=== PATIENT | male | born 1955 | race Caucasian/White ===

== ENCOUNTER 2023-05-29 10:29 | Outpatient (CLI) | payer OTHER, SELFPAY | END 2023-05-29 10:30 | disposition home or self-care (01) | LOC: NFLDREF 06-01 11:11 | PROVIDERS: PCP Family Medicine; Visit Provider Family Medicine | DX: Z00.00 Encounter for general adult medical examination without abnormal findings (principal); D56.1 Beta thalassemia; E55.9 Vitamin D deficiency, unspecified; E78.00 Pure hypercholesterolemia, unspecified; E78.5 Hyperlipidemia, unspecified; M10.9 Gout, unspecified; R79.89 Other specified abnormal findings of blood chemistry; Z12.5 Encounter for screening for malignant neoplasm of prostate | CPT/HCPCS: 80053; 80061; 84270; 84402; 84403; G0103 ==

== ENCOUNTER 2023-09-22 13:15 | Outpatient (CLI) | payer OTHER, SELFPAY ==
--- OUTSIDE RECORDS SUMMARY | 2023-09-24 08:33 | XMS_ITS | Data Portability ---
Author Organization [facility], [facility] Address [address] [place] [address] Care Team Providers Care Chain Dyer Name Role Phone AIDA RUBIO Primary Care Provider Assessment Encounter Date Assessment Date Assessment LastModified by Organization Details LastModified Time 07/29/2023 07/29/2023 67 year old male with a history of hypgonadism and an elevated prostate specific antigen. Not available 07/29/2023 14:22:27 Plan of Treatment Reminders Order Date Submit Date Provider Last Modified By Organization Details Last Modified Time Details Appointments None recorded. Lab urinalysis, dipstick 2023 024 [facility], [address], [address], [place], [address], 14:29:16 [facility], [facility], [address], [address], [place], [address], 14:10:49 PSA, total, serum or plasma 2023 024 [facility], [address], [address], [place], [address], 17:58:02 Referral None recorded. Procedures None recorded. Surgeries None recorded. Imaging None recorded. Medication Orders None recorded. Patient TargetsNo targets recorded. Patient Instructions Encounter Date Encounter Id Patient Instructions Last Modified By Organization Details Last Modified Time 07/29/2023 [id number] Elevated prostat e specific antigen: We discussed the significance of an elevated serum prostate specific antigen and its utility in screening for prostate cancer. We discussed that while prostate specific antigen levels may be elevated in some men due to benign causes such as trauma, recent sexual intercourse, urinary tract infections, or recent instrumentation, it may also be indicative of underlying prostate cancer. We did discuss the 20-40% chance of false elevation and that a repeat prostate specific antigen will be obtained if not already done. We discussed that a serum prostate specific antigen test alone is not sufficient to determine if prostate cancer is present and further testing is warranted. We then discussed the available options for further evaluations. One option would be to proceed with transrectal ultrasound with prostate biopsy. This allows for sampling of the prostate in areas where cancer is likely to be found. This will allow for detection of underlying prostate cancer if it is present. We discussed the limitations of this including under sampling which may lead to under diagnosis. We also discussed the risks most notably bleeding to a degree enough to require intervention (1-2.5%) and infection which may result in hospitalization (1-3%). We also discussed expected after effects of biopsy including temporary hematuria, blood per rectum, and hematospermia which are considered normal after this procedure. Up front biopsy may be most suitable for men with high risk for clinically significant prostate cancer where the likelihood of disease is high. A second option we discussed would be to proceed first with an MRI of the prostate. This would allow for detection of underlying lesions of the prostate which are suspicious for cancer. This information could then be utilized for ultrasound-MRI fusion biopsies which may result in improved detection of underlying prostate cancer and also facilitate bed bug exterminator surveillance for men in which low risk prostate cancers are identified. We then discussed the role of adjunctive testing in the form (4k score, iso-PSA, or ExoDx) to help better inform risk profile. While this does not tell a man whether he has prostate cancer this may be helpful in making a decision about whether to proceed with a prostate biopsy. We also discussed the limitations of these studies in men with a prostate specific antigen less than 4 ng/mL. Given that this is his first elevation, we will first repeat his prostate specific antigen. If this is persistently elevated we will proceed with an MRI and biopsy. Not available 07/29/2023 14:23:14 Reason for Referral None Reported. Results Created Date Observation Date Name Description Value Unit Range Abnormal Flag LastModifiedBy Organization Detail LastModifiedTime 07/29/19 24 07/29/2023 UA WITHO UT MICRO - CS URISC AN blood - uriscan NEGATI VE negati ve Not Available [facility] [address], [place], [address], 07/29/2023 14:29:16 07/29/19 24 07/29/2023 UA WITHO UT MICRO - CS URISC AN bilirubin - uriscan NEGATI VE mg/dL negati ve Not Available [facility] [address], [place], [address], 07/29/2023 14:29:16 07/29/19 24 07/29/2023 UA WITHO UT MICRO - CS URISC AN urobilinogen - uriscan NORMAL mg/dL normal Not Available [facility] [address], [place], [address], 07/29/2023 14:29:16 07/29/19 24 07/29/2023 UA WITHO UT MICRO - CS URISC AN ketones - uriscan NEGATI VE mg/dL negati ve Not Available [facility] [address], [place], [address], 07/29/2023 14:29:16 07/29/19 24 07/29/2023 UA WITHO UT MICRO - CS URISC AN protein - uriscan NEGATI VE mg/dL negati ve Not Available [facility] [address] [facility] [address], [place], [address], 07/29/2023 14:29:16 07/29/19 24 07/29/2023 UA WITHO UT MICRO - CS URISC AN nitrites - uriscan NEGATI VE negati ve Not Available [facility] [address], [place], [address], 07/29/2023 14:29:16 07/29/19 24 07/29/2023 UA WITHO UT MICRO - CS URISC AN glucose - uriscan NEGATI VE mg/dL negati ve Not Available [facility] [address] [place] [address], [place], [address], 07/29/2023 14:29:16 07/29/19 24 07/29/2023 UA WITHO UT MICRO - CS URISC AN pH - uriscan 5.00 5.00-9 .00 Not Available [facility] [address] [place] [address], [place], [address], 07/29/2023 14:29:16 07/29/19 24 07/29/2023 UA WITHO UT MICRO - CS URISC AN sp. gravity - uriscan 1.03 1.01-1 .03 Not Available [facility] [address] [place] [address] [address], [place], [address], 07/29/2023 14:29:16 07/29/19 24 07/29/2023 UA WITHO UT MICRO - CS URISC AN leukocytes - uriscan NEGATI VE negati ve Not Available [facility] [address] [place] [address] [address], [place], [address], 07/29/2023 14:29:16 07/29/19 24 07/29/2023 UA WITHO UT MICRO - CS URISC AN color - uriscan LT. YELLOW lt. yellow ;yello w Not Available [facility] [address] [place] [address] [address], [place], [address], 07/29/2023 14:29:16 07/29/19 24 07/29/2023 UA WITHO UT MICRO - CS URISC AN clarity - uriscan CLEAR clear Not Available [facility] [address] [place] [address] [address], [place], [address], 07/29/2023 14:29:16 07/29/19 24 07/29/2023 UA WITHO UT MICRO - CS URISC AN total urine volume (mL) 70 /mL Not Available [facility] [address], [place], [address], 07/29/2023 14:29:16 07/29/19 24 07/29/2023 PSA, TOTAL PSA, total 0.55 NG/mL 0.00-4 .00 Not Available [facility] [address], [place], [address], 07/29/2023 17:58:02 Result Notes None recorded. Problems Name Status Onset Date Resolution Date Notes Provider Name and Address Organization Details Recorded Time Anxiety Active 06/25/19 24 Edgar Meath null, [facility] 06/25/2023 11:29:41 Erectile dysfunction Active 06/25/19 24 Edgar Meath null, [facility] 06/25/2023 11:29:48 Gout Active 06/25/19 24 Edgar Meath null, [facility] 06/25/2023 11:29:55 Hyperlipidemia Active 06/25/19 24 Edgar Meath null, [facility] 06/25/2023 11:30:00 Testicular hypofunction Active 06/25/19 24 Edgar Meath null, [facility] 06/25/2023 11:30:10 Vitamin D deficiency Active 06/25/19 24 Edgar Meath null, [facility] 06/25/2023 11:30:19 Prostate specific antigen above reference range Active 06/25/19 24 Edgar Meath null, [facility] 06/25/2023 11:30:27 Hypogonadism Active 09/01/19 24 Edgar Meath null, [facility] 09/01/2023 11:10:25 Problem Notes None recorded. Procedures Surgical History Date Name Laterality Status Provider Name and Address Organization Details Recorded Time 4 COMPLEX VISIT completed Carmine Chapa MD [address] [place] [address],[address], [address], [facility] 07/29/2023 14:21:41 Past Data Reviewed completed Carmine Chapa MD [address] [place] [address],[facility] [address], [place], [address], [facility] 07/29/2023 14:21:57 8 Colonoscopy completed Edgar Domingo brooks [facility] 06/25/2023 11:31:10 Imaging Results None recorded. Procedure Notes None recorded. Medical Equipment None Reported. Allergies No known drug allergies Medications Name Sig Start Date Stop Date Status Note LastModified by Organization Details LastModified Time simvastat in 80 mg tablet 80mg 1/day active Not Available Not Available No t Available sildenafi l 100 mg tablet TAKE 1 TABLET BY MOUTH ONCE DAILY IF NEEDED FOR ERECTILE DYSFUNCT ION 30 MINUTES TO 4 HOURS BEFORE SEXUAL ACTIVITY . MAX 1 TABLET PER DAY. active Not Available Not Available No t Available omeprazol e 20 mg capsule,d elayed release TAKE 1 CAPSULE BY MOUTH TWICE A DAY BEFORE MEALS 07/28 completed HN: Patient reports no longer taking Not Available Not Available Not Available ergocalci ferol (vitamin D2) 1,250 mcg (50,000 unit) capsule TAKE 1 CAPSULE BY MOUTH ONCE A WEEK active Not Available Not Available No t Available Drisdol 1.25mg of [id number] Once a week 07/28 completed HN: Patient reports no longer taking Not Available Not Available Not Available Vitals Date Recorded Body mass index (BMI) Body height Body weight Provider Name and Address Organization Details Last Updated DateTime 07/29/2023 27.3 kg/m2 187.96 cm 10158.2897 366458 g Not Available Health Note 07/29/2023 13:55:22 Social History Question Answer Notes LastModified by Organizat ion Details LastModified Time Tobacco Smoking Status Never Smoker Not Available Health Note 07/28/2023 15:52:16 What Is Your Level Of Alcohol Consumption? Occasional Information not available 07/29/2023 What Is Your Level Of Caffeine Consumption? Occasional [email or web address] Information not available 07/28/2023 How Much Tobacco Do You Chew? None [email or web address] Information not available 07/28/2023 Do You Or Have You Ever Used E-cigarettes Or Vape? Never Used Electronic Cigarettes [email or web address] Information not available 07/28/2023 What Was The Date Of Your Most Recent Tobacco Screening? 07/29/2023 [email or web address] Information not available 07/28/2023 Have You Ever Been Counseled For Unhealthy Alcohol Use? No Information not available 07/29/2023 What Is Your Relationship Status? [email or web address] Information not available 07/28/2023 Are You Sexually Active? Yes [email or web address] Information not available 06/30/2023 Do You Or Have You Ever Used Smokeless Tobacco? Never Used Smokeless Tobacco [email or web address] Information not available 07/28/2023 Do You Use Any Illicit Or Recreational Drugs? No [email or web address] Information not available 07/28/2023 Has Tobacco Cessation Counseling Been Provided? No Information not available 07/29/2023 Do You Or Have You Ever Used Any Other Forms Of Tobacco Or Nicotine? No Information not available 07/29/2023 How Many Days In The Past Year Have You Consumed 5 Or More Drinks? 0 [email or web address] Information no t available 07/28/2023 Sex: Male Functional Status None recorded. Mental Status None recorded. Family History Relationship Description Onset Age of this Age Resolved Age Notes Mother Family history of east cancer Medical History Condition Response Sexually Transmitted Infection N Diabetes N Bleeding Disorder N High Blood Pressure N Kidney Stones N Cancer N Lung Disease N Depression N High Cholesterol N GERD/Acid Reflux N Heart Disease N Immunizations Vaccine Type Date Status Provider Name and Address Organization Details Recorded Time SARS-COV-2 (COVID-19) vaccine, UNSPECIFIED 04/07/2021 completed Edgar Meath null, [facility] 07/29/2023 14:06:20 SARS-COV-2 (COVID-19) vaccine, UNSPECIFIED 04/27/2021 completed Edgar Meath null, [facility] 07/29/2023 14:06:20 zoster recombinant 08/28/2017 completed Edgar Meath null, [facility] 07/29/2023 14:06:20 zoster recombinant 11/26/2017 completed Edgar Meath null, [facility] 07/29/2023 14:06:20 COVID-19, mRNA, LNP-S, PF, 100 mcg/0.5mL dose or 50 mcg/0.25mL dose 07/18/2020 completed Edgar Meath null, [facility] 07/29/2023 14:06:20 COVID-19, mRNA, LNP-S, PF, 100 mcg/0.5mL dose or 50 mcg/0.25mL dose 08/15/2020 completed Edgar Chayo guy [facility] 07/29/2023 14:06:20 COVID-19, mRNA, LNP-S, PF, 100 mcg/0.5mL dose or 50 mcg/0.25mL dose 04/08/2021 completed Edgar Meat brooks [facility] 07/29/2023 14:06:20 COVID-19, mRNA, LNP-S, bivalent, PF, 50 mcg/0.5 mL or 25mcg/0.25 mL dose 03/26/2022 completed Edgar Meath brooks [facility] 07/29/2023 14:06:20 Tdap 05/24/2013 completed Edgar Meath brooks [facility] 07/29/2023 14:06:20 Td (adult), 2 Lf tetanus toxoid, preservative free, adsorbed 01/13/2003 completed Edgar Meat brooks [facility] 07/29/2023 14:06:20 Past Encounters Encounter ID Performer Location Encounter Start Date Encounter Closed Date Diagnosis/Indication Diagnosis SNOMED-CT Code [id number] Taylor Pinto [address] [address] 07/29/2023 13:52:21 07/29/2023 14:28:01 Prostate specific antigen above reference range [id number] Male hypogonadism 958718 06 Health Concerns Section Related Observation LastModified by Organization Detai ls LastModified Time None Recorded Concern Status LastModified by Organization Details LastModified Time None Recorded Advance Directives Directive None Recorded Payers Encounter Date Sequence Insurance Name Policy Number Policy Worrell Covered Member ID Worrell Member ID Guarantor Name 07/29/2023 1 [employer] (MEDICARE REPLACEMENT PPO) [id number] Jeyson Keith [id number] Jeyson Keith 07/29/2023 2 MED[place] [employer] [facility] Jeyson Keith [id number] Jeyson Keith Notes Date Note Type Note Provider Name and Address Organization Details Recorded Time 07/29/2023 text/html HPI Notes: This is a 67 year old male who is referred by Dr. Rubio for the evaluation and management of an elevated prostate specific antigen. He was noted to have an elevated prostate specific antigen of 2.37 ng/mL (05/29/2023) His prior prostate specific antigen's have been < 1 ng/mL with his prostate specific antigen last year at 0.5 ng/mL. He has no prior history of prostate specific antigen elevations. There is no family history of prostate cancer. He is typically on testosterone replacement therapy but this is being held pending evaluation of his prostate specific antigen. SARAH Patel - [facility] 07/29/2023 14:25:38
--- OUTSIDE RECORDS SUMMARY | 2023-09-24 08:33 | XMS_ITS | Continuity of Care Document ---
Author Organization [facility] Address [address] [address] Care Team Providers Care Coverstitch Binder Name Role Phone AIDA RUBIO Primary Care Provider [phone] Assessment Encounter Date Assessment Date Assessment LastModified by Organization Details LastModified Time 07/29/2023 07/29/2023 67 year old male with a history of hypgonadism and an elevated prostate specific antigen. Not available 07/29/2023 14:22:27 Plan of Treatment Reminders Order Date Submit Date Provider Last Modified By Organization Details Last Modified Time Details Appointments None recorded. Lab urinalysis, dipstick 2023 [facility], [address], [address], [place], [address], 14:29:16 [facility]inalysis, microscopic [facility], [address], [address], [place], [address], 14:10:49 PSA, total, serum or plasma 2023 024 [facility], [address], [address], [place], [address], 17:58:02 Referral None recorded. Procedures None recorded. Surgeries None recorded. Imaging None recorded. Medication Orders None recorded. Patient TargetsNo targets recorded. Patient Instructions Encounter Date Encounter Id Patient Instructions Last Modified By Organization Details Last Modified Time 07/29/2023 [id number] Elevated prostat e specific antigen: We discussed [...] of underlying prostate cancer and also facilitate terminal superintendent surveillance for men in which low risk [...] 07/29/2023 14:23:14 Reason for Referral None Reported. Problems Name Status Onset Date Resolution Date Notes Provider Name and Address Organization Details Recorded Time Anxiety Active 06/25/19 24 Edgar Meath null, [facility] 06/25/2023 11:29:41 Erectile dysfunction Active 06/25/19 24 Edgar Meath null, [facility] 06/25/2023 11:29:48 Gout Active 06/25/19 24 Edgar Meath null, [facility] 06/25/2023 11:29:55 Hyperlipidemia Active 06/25/19 24 Edgar Meath null, [facility] 06/25/2023 11:30:00 Testicular hypofunction Active 06/25/19 24 Edgar Meath null, [facility] 06/25/2023 11:30:10 Vitamin D deficiency Active 06/25/19 24 Edgar Meath null, [facility] 06/25/2023 11:30:19 Prostate specific antigen above reference range Active 06/25/19 24 Edgar Meath null, [facility] 06/25/2023 11:30:27 Hypogonadism Active 09/01/19 24 Edgar Meath null, [facility] 09/01/2023 11:10:25 Problem Notes None recorded. Procedures Surgical History Date Name Laterality Status Provider Name and Address Organization Details Recorded Time 4 COMPLEX VISIT completed Carmine Chapa MD [address] [place] [address],[address], [address], [facility] 07/29/2023 14:21:41 4 Past Data Reviewed completed Carmine Chapa MD [address] [place] [address],[address], [address], [facility] 07/29/2023 14:21:57 8 Colonoscopy completed [facility], [facility] 06/25/2023 11:31:10 Imaging Results None recorded. Procedure [...] Available No t Available Drisdol 1.25mg of [id number] Once a week 07/28 completed HN: Patient reports no longer taking Not Available Not Available Not Available Vitals Date Recorded Body mass index (BMI) Body height Body weight Provider Name and Address Organization Details Last Updated DateTime 07/29/2023 27.3 kg/m2 187.96 cm 01779.2897 559924 g Not Available Health Note 07/29/2023 13:55:22 [...] available 07/28/2023 Are You Sexually Active? Yes [email or web address] Information not available 06/30/2023 Do You Or Have You Ever Used Smokeless Tobacco? Never Used Smokeless Tobacco [email or web address] Information not available 07/28/2023 Do You Use Any Illicit Or Recreational Drugs? No [email or web address] Information not available 07/28/2023 Has Tobacco Cessation Counseling Been Provided? No Information not available 07/29/2023 Do You Or Have You Ever Used Any Other Forms Of Tobacco Or Nicotine? No Information not available 07/29/2023 How Many Days In The Past Year Have You Consumed 5 Or More Drinks? 0 [email or web address] Information no t available 07/28/2023 Sex: Male Functional Status None recorded. Mental Status None recorded. Family History Relationship Description Onset Age of this Age Resolved Age Notes Mother Family history of br east cancer Medical History Condition Response Diabetes N Sexually Transmitted Infection N Bleeding Disorder N High Blood Pressure N Kidney Stones N Cancer N Lung Disease N Depression N High Cholesterol N GERD/Acid Reflux N Heart Disease N Immunizations Vaccine Type Date Status Provider Name and Address Organization Details Recorded Time SARS-COV-2 (COVID-19) vaccine, UNSPECIFIED 04/07/2021 completed Edgar Meath null, [facility] 07/29/2023 14:06:20 SARS-COV-2 (COVID-19) vaccine, UNSPECIFIED 04/27/2021 completed Edgar Meath null, [facility] 07/29/2023 14:06:20 zoster recombinant 08/28/2017 completed Edgar Meath null, [facility] 07/29/2023 14:06:20 zoster recombinant 11/26/2017 completed Edgar Meath null, [facility] 07/29/2023 14:06:20 COVID-19, mRNA, LNP-S, PF, 100 mcg/0.5mL dose or 50 mcg/0.25mL dose 07/18/2020 completed Edgar Meath null, [facility] 07/29/2023 14:06:20 COVID-19, mRNA, LNP-S, PF, 100 mcg/0.5mL dose or 50 mcg/0.25mL dose 08/15/2020 completed Edgar Meath null, [facility] 07/29/2023 14:06:20 COVID-19, mRNA, LNP-S, PF, 100 mcg/0.5mL dose or 50 mcg/0.25mL dose 04/08/2021 completed Edgar Meath null, [facility] 07/29/2023 14:06:20 COVID-19, mRNA, LNP-S, bivalent, PF, 50 mcg/0.5 mL or 25mcg/0.25 mL dose 03/26/2022 completed Edgar guy [facility] 07/29/2023 14:06:20 Tdap 05/24/2013 completed Edgar guy [facility] 07/29/2023 14:06:20 Td (adult), 2 Lf tetanus toxoid, preservative free, adsorbed 01/13/2003 completed Edgar guy [facility] 07/29/2023 14:06:20 Past Encounters Encounter ID Performer Location Encounter Start Date Encounter Closed Date Diagnosis/Indication Diagnosis SNOMED-CT Code [id number] Taylor Cortés[address],[facility] [address] [place] [address] 07/29/2023 13:52:21 07/29/2023 14:28:01 Prostate specific antigen above reference range [id number] Male hypogonadism 729736 06 Health Concerns Section Related Observation LastModified by Organization Detai ls LastModified Time None Recorded Concern Status LastModified by Organization Details LastModified Time None Recorded Payers Encounter Date Sequence Insurance Name Policy Number Policy Worrell Covered Member ID Worrell Member ID Guarantor Name 07/29/2023 1 [employer] (MEDICARE REPLACEMENT PPO) [id number] Jeyson Keith [id number] Jeyson Keith 07/29/2023 2 [place] [employer] [facility] Jeyson Keith [id number] Jeyson Keith Notes Date Note Type Note Provider Name and Address Organization Details Recorded Time 07/29/2023 text/html HPI Notes: This is a 67 year old male who is referred by Dr. uRbio for the evaluation and management of an [...] pending evaluation of his prostate specific antigen. Taylor guy [facility] 07/29/2023 14:25:38
--- OUTSIDE RECORDS SUMMARY | 2023-09-24 08:33 | XMS_ITS | Clinical Summary ---
Author Organization [facility] Address [address] [place] [address] Care Team Providers Care Gun Striper Name Role Phone Reinaldo Contreras MD Primary Care Provider [phone] Medications Medication Sig Dispensed Refills Start Date End Date Status VITAMIN D, CHOLECALCIFEROL, PO Take 5,000 Units by mouth once a week Active PARoxetine HCl (PAXIL PO) Take 20 mg by mouth daily Active SIMVASTATIN PO Take 80 mg by mouth Active Active Problems Problem Noted Date Diagnosed Date Pain in joint, shoulder region 07/05/2010 Social History Tobacco Use Types Packs/Day Years Used Date Smoking Tobacco: Never Smokeless Tobacco: Never Sex and Gender Information Value Date Recorded Sex Assigned at Not on file Gender Identity Not on file Sexual Orientation Not on file Last Filed Vital Signs Vital Sign Reading Time Taken Comments Blood Pressure 134/82 09/10/2017 3:19 PM CDT Pulse 64 09/10/2017 2:15 PM CDT Temperature - - Respiratory Rate 16 09/10/2017 3:00 PM CDT Oxygen Saturation 96% 09/10/2017 3:19 PM CDT Inhaled Oxygen Concentration - - Weight 99.8 kg (220 lb) 09/10/2017 2:15 PM CDT Height 188 cm (6' 2) 09/10/2017 2:15 PM CDT Body Mass Index 28.25 09/10/2017 2:15 PM CDT Plan of Treatment Not on file Care Teams Gun Striper Relationship Specialty Start Date End Date Reinaldo Contreras MD [facility] [address] [place] [address] PCP - General Family Practice 09/02/17
--- OUTSIDE RECORDS SUMMARY | 2023-09-24 08:33 | XMS_ITS | Clinical Summary ---
Author Organization [facility] Address [place], [place] [address] Care Team Providers Care Orthotic/Prosthetic Practitioner Name Role Phone Reinaldo Contreras MD Primary Care Provider Allergies No known active allergies Medications Medication Sig Dispensed Refills Start Date End Date Status ibuprofen (ADVIL; MOTRIN) 600 mg tabletIndications:S kin cyst Take 1 Tablet (600 mg) by mouth every 6 hours if needed for Pain. Maximum of 3200 mg in 24 hours. 20 Tablet 01/13/2022 Active acetaminophen (TYLENOL) 325 mg tabletIndications:S kin cyst Take 2 Tablets (650 mg) by mouth every 4 hours if needed for Pain. Max acetaminophen dose: 4000mg in 24 hrs. 30 Tablet 01/13/2022 Active PARoxetine (PAXIL) 20 mg tabletIndications:D epression with anxiety Take 1 Tablet (20 mg) by mouth every morning. 90 Tablet 05/02/2022 Active testosterone cypionate (DEPO-TESTOSTERONE) 200 mg/mL injectionIndication s:Erectile dysfunction, unspecified erectile dysfunction type Inject 125 mg intramuscular every 2 weeks. 10 mL 1 08/25/2022 Active simvastatin (ZOCOR) 80 mg tabletIndications:O ther hyperlipidemia Take 1 Tablet (80 mg) by mouth at bedtime. 90 Tablet 3 08/25/2022 Active sildenafil citrate (Viagra) 100 mg tabletIndications:E rectile dysfunction, unspecified erectile dysfunction type Take 1 Tablet (100 mg) by mouth once daily if needed for Erectile Dysfunction. Take 30min to 4 hours before sexual activity. Max 100mg/24hr. 90 Tablet 3 08/25/2022 Active omeprazole (PRILOSEC) 20 mg Delayed-Release capsuleIndications: Chronic GERD Take 1 Capsule (20 mg) by mouth two times daily before meals. 180 Capsule 3 08/25/2022 Active ergocalciferol (VITAMIN D2; DRISDOL) 50,000 unit capsuleIndications: Vitamin D deficiency Take 1 Capsule (50,000 units) by mouth once weekly. 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 12/21/2018 Nuclear senile cataract of both eyes 04/11/2016 Erectile dysfunction 06/09/2014 Anxiety 06/09/2014 vitamin D deficiency 07/21/2011 Pain in joint, shoulder region 06/24/2010 Gout, unspecified 11/09/2009 Routine health maintenance 11/09/2009 Overview: Last cpx-04/04 Last lipid-04/04,LDL-51 Last colonoscopy-09/11, recheck 10 years hyperlipidemia 10/25/2009 testicular hypofunction 10/25/2009 Resolved Problems Problem Noted Date Diagnosed Date Resolved Date Depression with anxiety 11/09/200905/28 Immunizations Name Administration Dates Next Due COVID-19 vaccine (Moderna 100mcg/0.5mL) PF, MDV 08/15/2020,07/18/2020 COVID-19 vaccine (Moderna 50 mcg/0.5mL) 12YO+ BIVALENT PF, MDV 03/26/2022 Td (Age >=7 Years) 01/13/2003 Tdap 05/24/2013 Zoster (Shingrix-RZV, recombinant) 11/26/2017, Family History Medical History Relation Name Comments Cancer Father Hypertension Father Cancer Mother Hypertension Mother Relation Name Status Comments Father Mother Social History Tobacco Use Types Packs/Day Years Used Date Smoking Tobacco: Never Smokeless Tobacco: Never Alcohol Use Standard Drinks/Week Comments Yes 0 (1 standard drink = 0.6 oz pur e alcohol) very rare PHQ-2 Answer Date Recorded PHQ-2 TOTAL SCORE 0 08/25/2022 Social Connections Answer Date Recorded Frequency of Communication with Friends and Fami ly Not on file 2023 Financial Resource Strain Answer Date R ecorded Difficulty of Paying Living Expenses 3 08/25/2022 Difficulty of Paying Living Expenses Not on file 08/25/2022 Food Insecurity Answer Date Recorded Worried About Running Out of Food in the Last Ye ar 1 08/25/2022 Transportation Needs Answer Date Record ed Lack of Transportation (Medical) 1 08/25/2022 Housing Stability Answer Date Recorded Unable to Pay for Housing in the Last Year 1 08/25/2022 Sex and Gender Information Value Date Recorded Sex Assigned at Not on file Gender Identity Not on file Sexual Orientation Not on file Obstetrics History Last Filed Vital Signs Vital Sign Reading Time Taken Comments Blood Pressure 143/75 09/25/2022 1:48 PM CDT Pulse 62 09/25/2022 1:48 PM CDT Temperature 36.4 ??C (97.6 ??F) 01/13/2022 5:59 PM CD T Respiratory Rate 16 01/13/2022 6:02 PM CDT Oxygen Saturation 100% 09/25/2022 1:48 PM CDT Inhaled Oxygen Concentration - - Weight 100.8 kg (222 lb 3.2 oz) 09/25/2022 1:48 PM CDT Height 186.7 cm (6' 1.5) 09/25/2022 1:48 PM CDT Body Mass Index 28.92 09/25/2022 1:48 PM CDT Plan of Treatment Health Maintenance Due Date Last Done Comments Hepatitis C screening for ag e 18-79 1974 Pneumococcal series for age 65+ (1 of 1 - PCV) 2021 COVID-19 vaccine series (2022-24 season) 2022 03/26/2022, 04/08/2021, 08/15/2020, Additional history exists Tetanus booster 05/24/2023 05/24/2013, 01/13/2003 Depression screening for age 12+ 2023 08/25/2022, 09/27/2021, 10/22/2020, Additional history exists Medicare Wellness for age 65+ 2023 08/25/2022 BMI (ht and wt on same day) for age 18+ 09/26/2023 09/25/2022, 08/25/2022, 12/19/2021, Additional history exists Influenza for age 65+ 12/27/2023 Lipids for age 45-75 08/16/2027 08/15/2022, 07/26/2021, 10/19/2020, Additional history exists Colonoscopy through age 75 09/11/202709/10, 04/22/2007 (Completed outside of [facility]) Tdap Completed 05/24/2013 Zoster (shingles) series for age 50+ Completed 11/26/2017, 08/28/2017 Procedures Procedure Name Priority Date/Time Associated Diagnosis Comments LC LIPID PANEL Routine 08/15/2022 10:36 AM CDT Mixed hyperlipidemia SCAN-COLONOSCOPY 09/10/2017 12:0 0 AM CDT from Last 3 Months or Most Recently Relevant to Health Maintenance Results * (ABNORMAL) LC LIPID PANEL (08/15/2022 10:36 AM CDT) [facility] Cholesterol, Total 125 100 - 199 mg/dL 08/19/2022 1:[address] [facility]) Triglycerides 127 0 - 149 mg/dL 08/19/2022 1:[address] ([facility]) HDL Cholesterol 35(L) >39 mg/dL 1:[address] [facility] ([facility]) VLDL Cholesterol [place] 23 5 - 40 mg/dL 08/19/2022 1:09 PM CDT [facility] ([facility]) LDL Chol Calc ([facility]) 67 0 - 99 mg/dL 08/19/2022 1:09 PM T [facility] ([facility]) Blood BLOOD SPECIMEN / Unknown Venipuncture / Unknown 08/15/2022 10:36 AM CDT 08/15/2022 10:36 AM CDT Narrative [facility] ([facility]) - 08/19/2022 1:09 PM CDT Performed at: ??01 - [facility] [address] [place] [address] ??[id number] Dye Reel Operator Helper: Sven Crow MD, Phone: ??[phone] Reinaldo Contreras MD SEND OUTS [facility] ([facility]) [facility] [place], [place] [address] * SCAN-COLONOSCOPY (09/10/2017 12:00 AM CDT) Scanner OTHER from Last 3 Months or Most Recently Relevant to Health Maintenance Advance Directives * Full Code (Latest Code Status on File) Date Activated Date Inactivated Comments 01/13/2022 1:55 PM 01/13/2022 4:32 PM Question Answer Comments Code Status Discussion: Reviewed Preferences Care Teams Orthotic/Prosthetic Practitioner Relationship Specialty Start [place] [address] [place] [address] PCP - General 10/23/09
--- OUTSIDE RECORDS SUMMARY | 2023-09-24 08:33 | XMS_ITS | Continuity of Care Document ---
Author Organization [facility] Address [address] [address] [place] [address] Phone Care Team Providers Care Dinkey Operator Slate Name Role Phone No Information Unavailable Unavailable Advance Directives Directive Yes / No Effective Date File Name No Information Encounters Encounter Description Practice Location Reason(s) For Visit Diagnoses Date Provider Providers Copied on Encounter [facility], [address] [address], [place], [place], [id number], [place] tel:[phone] No Information No Information Family History Family Member Type Diagnosis Age At Onset No Information Payers Payer name Insurance type Covered alliance party ID Authoriza tion(s) No Information Social History Type Description Quantity Date Captured Comments Sex Male Smoking Status No Information Chief Complaint And Reason For Visit No Information Reason For Referral Reason For Referral No Information History Of Present Illness Encounter Date Complaint History Of Prese nt Illness No Information Functional Status Date Functional Assessmen t No Information Instructions Date Instruction Additional Infor mation No Information Assessments Type Assessment Date No Information Patient Care Teams Name Effective Dates (start - stop) Status Members No Information
--- OUTSIDE RECORDS SUMMARY | 2023-09-24 08:33 | XMS_ITS | Referral Summary ---
Author Organization [facility] Address [address] [place] [address] Care Team Providers Care Coater Name Role Phone Reinaldo Contreras MD Primary Care Provider [phone] Medications Medication Sig Dispensed Refills Start Date [...] of Treatment Not on file Care Teams Coater Relationship Specialty Start Date End Date Reinaldo Contreras MD [facility] [address] [place] [address] PCP - General Family Practice 09/02/17
== END 2023-09-22 13:16 | disposition home or self-care (01) ==
LOC: NFLDREF 09-24 08:26
PROVIDERS: PCP Family Medicine; Referring Provider Family Medicine; Visit Provider Family Medicine
DX: R79.89 Other specified abnormal findings of blood chemistry (principal); D56.1 Beta thalassemia; I10 Essential (primary) hypertension; Z12.5 Encounter for screening for malignant neoplasm of prostate
CPT/HCPCS: 80053; 84270; 84402; 84403; G0103

== ENCOUNTER 2024-03-09 10:31 | Outpatient (CLI) | payer OTHER, SELFPAY ==
--- OUTSIDE RECORDS SUMMARY | 2024-03-13 09:33 | XMS_ITS | Clinical Summary ---
Author Organization [facility] Address [place], [place] [address] Care Team Providers Care Call Center Rn Name Role Phone Logan Rubio MD Primary Care Provider [phone] Allergies No known active allergies Medications Medication [...] at bedtime. 90 Tablet 3 08/25/2022 Active omeprazole (PRILOSEC) 20 mg Delayed-Release capsuleIndications: Chronic GERD Take 1 Capsule (20 mg) by mouth two times daily before meals. 180 Capsule 3 08/25/2022 Active ergocalciferol (VITAMIN D2; DRISDOL) 50,000 unit capsuleIndications: Vitamin D deficiency Take 1 Capsule (50,000 units) by mouth once weekly. 26 Capsule 3 08/25/2022 Active sildenafil citrate (Viagra) 100 mg tabletIndications:E rectile dysfunction, unspecified erectile dysfunction type Take 1 Tablet (100 mg) by mouth once daily if needed for Erectile Dysfunction. Take 30min to 4 hours before sexual activity. Max 100mg/24hr. 90 Tablet 12/21/2023 Active Hospital, Clinic, or Other Facility Administered [...] Gout, unspecified 11/09/2009 Routine health maintenance 11/09/2009 Overview (09/11/2017): Last cpx-04/04 Last lipid-04/04,LDL-51 Last colonoscopy-09/11, recheck 10 years hyperlipidemia 10/25/2009 testicular hypofunction 10/25/2009 Resolved Problems Problem Noted Date Diagnosed Date Resolved Date Depression with anxiety 11/09/200905/28 Encounters Date Type Department Care Team Description 12/18/[address] [address] Reinaldo Contreras MD Refill Request (Sildenafil/) from Last 3 Months Immunizations Name Administration Dates Next Due COVID-19 vaccine (Moderna 100mcg/0.5mL) PF MDV 08/15/2020,07/18/2020 COVID-19 vaccine (Moderna 50 mcg/0.5mL) [...] 65+ (1 of 1 - PCV) 2021 Tetanus booster 05/24/2023 05/24/2013, 01/13/2003 Depression screening for age 12+ 2023 08/25/2022, 09/27/2021, 10/22/2020, Additional history exists Medicare Wellness for age 65+ 2023 08/25/2022 BMI (ht and wt on same day) for age 18+ 09/26/2023 09/25/2022, 08/25/2022, 12/19/2021, Additional history exists COVID-19 vaccine series ( season) 2023 03/26/2022, 04/08/2021, 08/15/2020, Additional history exists Influenza for age 65+ 12/27/2023 Lipids for age 45-75 08/16/2027 08/15/2022, 07/26/2021, 10/19/2020, Additional history exists Colonoscopy through age 75 09/11/202709/10, 04/22/2007 ([facility] Tdap Completed 05/24/2013 Zoster (shingles) series for age 50+ Completed 11/26/2017, 08/28/2017 Procedures Procedure Name Priority Date/Time Associated Diagnosis Comments LC LIPID PANEL Routine 08/15/2022 10:36 AM CDT Mixed hyperlipidemia SCAN-COLONOSCOPY 09/10/2017 12:0 0 AM CDT from Last 3 Months or Most Recently Relevant to Health Maintenance Results * (ABNORMAL) LC LIPID PANEL (08/15/2022 10:36 AM CDT) Cholesterol, Total 125 100 - 199 mg/dL 08/19/2022 1:09 PM [facility] Triglycerides 127 0 - 149 mg/dL 08/19/2022 1:09 PM CDT [facility] HDL Cholesterol 35(L) >39 mg/dL 1:09 PM CDT [facility] VLDL Cholesterol [place] 23 5 - 40 mg/dL 08/19/2022 1:09 PM CDT [facility] ([facility]) LDL Chol Calc ([facility]) 67 0 - 99 mg/dL 08/19/2022 1:09 PM CD[facility] Blood BLOOD SPECIMEN / Unknown Venipuncture / Unknown 08/15/2022 10:36 AM CDT 08/15/2022 10:36 AM CDT Narrative [facility] ([facility]) - 08/19/2022 1:09 PM CDT Performed at: ??01 - [address] ??[id number] Civil Engineer In Training: Sven Crow MD, Phone: ??[phone] Reinaldo Contreras MD SEND OUTS [facility] ([facility]) [facility] [place] [address], * SCAN-COLONOSCOPY (09/10/2017 12:00 AM CDT) Scanner OTHER from Last 3 Months or Most Recently Relevant to Health Maintenance Advance Directives * Full Code (Latest Code Status on File) Date Activated Date Inactivated Comments 01/13/2022 1:55 PM 01/13/2022 4:32 PM Question Answer Comments Code Status Discussion: Reviewed Preferences Care Teams Call Center Rn Relationship Specialty Start Date End Date Logan Rubio MD PCP - General Family Practice 10/22/23
--- OUTSIDE RECORDS SUMMARY | 2024-03-13 09:33 | XMS_ITS | Data Portability ---
Author Organization [facility], [facility] Address [address] [place] [address] Care Team Providers Care Supervisor Char House Name Role Phone AIDA RUBIO Primary Care [...] None recorded. Lab urinalysis, dipstick 2023 024 [facility], [address], [address], [place], [address], 14:29:16 urinalysis, microscopic 2023 024 [facility], [address], [address], [place], [address], 05:01:04 PSA, total, serum or plasma 2023 024 [facility], [address], [address], [place], [address], 17:58:02 Referral None recorded. Procedures None recorded. Surgeries None recorded. Imaging None recorded. Medication Orders None recorded. Patient TargetsNo targets recorded. Patient Instructions Encounter Date Encounter Id Patient Instructions Last Modified By Organization Details Last Modified Time 07/29/2023 [id number] Elevated prostat e specific antigen: We discussed [...] of underlying prostate cancer and also facilitate alf surveillance for men in which low risk [...] Name Description Value Unit Range Abnormal Flag Note LastModifiedBy Organization Detail LastModifiedTime 07/29/19 24 07/29/2023 UA WITHO UT MICRO - CS URISC AN blood - uriscan NEGATI VE negati ve Not Available [facility] [address], [place], [address], 07/29/2023 14:29:16 07/29/19 24 07/29/2023 UA WITHO UT MICRO - CS URISC AN bilirubin - uriscan NEGATI VE mg/dL negati ve Not Available [facility] [address] [place] [address] [address], [place], [address], 07/29/2023 14:29:16 07/29/19 24 07/29/2023 UA WITHO UT MICRO - CS URISC AN urobilinogen - uriscan NORMAL mg/dL normal Not Available [facility] [address] [place] [address] [address], [place], [address], 07/29/2023 14:29:16 07/29/19 24 07/29/2023 UA WITHO UT MICRO - CS URISC AN ketones - uriscan NEGATI VE mg/dL negati ve Not Available [facility] [address] [place] [address] [address], [place], [address], 07/29/2023 14:29:16 07/29/19 24 07/29/2023 UA WITHO UT MICRO - CS URISC AN protein - uriscan NEGATI VE mg/dL negati ve Not Available [facility] [address] [place] [address] [address], [place], [address], 07/29/2023 14:29:16 07/29/19 24 07/29/2023 UA WITHO UT MICRO - CS URISC AN nitrites - uriscan NEGATI VE negati ve Not Available [facility] [address] [place] [address] [address], [place], [address], 07/29/2023 14:29:16 07/29/19 24 07/29/2023 UA WITHO UT MICRO - CS URISC AN glucose - uriscan NEGATI VE mg/dL negati ve Not Available [facility] [address] [place] [address] [address], [place], [address], 07/29/2023 14:29:16 07/29/19 24 07/29/2023 UA WITHO UT MICRO - CS URISC AN pH - uriscan 5.00 5.00-9 .00 Not Available [facility] [address] [place] [address] [address], [place], [address], 07/29/2023 14:29:16 07/29/19 24 07/29/2023 UA WITHO UT MICRO - CS URISC AN sp. gravity - uriscan 1.03 1.01-1 .03 Not Available [facility] [address] [place] [address] [address], [place], [address], 07/29/2023 14:29:16 07/29/19 24 07/29/2023 UA WITHO UT MICRO - CS URISC AN leukocytes - uriscan NEGATI VE negati ve Not Available [facility] [address] [place] [address] [address], [place], [address], 07/29/2023 14:29:16 07/29/19 24 07/29/2023 UA WITHO UT MICRO - CS URISC AN color - uriscan LT. YELLOW lt. yellow ;yello w Not Available [facility] [address] [place] [address] [address], [place], [address], 07/29/2023 14:29:16 07/29/19 24 07/29/2023 UA WITHO UT MICRO - CS URISC AN clarity - uriscan CLEAR clear Not Available [facility] [address] [place] [address] [address], [place], [address], 07/29/2023 14:29:16 07/29/19 24 07/29/2023 UA WITHO UT MICRO - CS URISC AN total urine volume (mL) 70 /mL ----- ----- ----- ----- ----- ----- ----- ----- ----- ----- ----- ----- ----- ----- ---- *Plethomas kim note the [facility]ollo wing minim um quant ities for addit ional urine testi ng: - Atypi cals: 3 mL - Cytol ogy: 20 mL - GC/CH : 2 mL - FISH: 30 mL - Atypi cals w/ GC/CH : 5 mL - Cytol ogy PLUS FISH: 50 mL - Urine Cultu re: 3 mL ----- ----- ----- ----- ----- ----- ----- ----- ----- ----- ----- ----- ----- ----- ---- This lab resul t is being provi ded to you and your provi xochitl at the same time in [facility] with the Centu ry Cures Act. Your provi xochitl may not have had time to revie w and make recom menda tions based on the resul t. Christine e allow up to one week for provi xochitl revie w. Not Available [facility] [address] [place] [address] [address], [place], [address], 07/29/2023 14:29:16 07/29/19 24 07/29/2023 PSA, TOTAL PSA, total 0.55 NG/mL 0.00-4 .00 This lab resul t is being provi ded to you and your provi xochitl at the same time in [facility] with the Centu ry Cures Act. Your provi xochitl may not have had time to revie w and make recom menda tions based on the resul t. Christine e allow up to one week for provi xochitl revie w. Not Available [facility] [address], [place], [address], 07/29/2023 17:58:02 Result Notes None recorded. Problems Name Problem SNOMED Code Status Onset Date Resolution Date Notes Provider Name and Address Organization Details Recorded Time Anxiety 29988201 Active 2023 Edgar Meath null, [facility] 4 11:29:41 Erectile dysfunction 932817013 Active 2023 Edgar Meat null, [facility] 4 11:29:48 Gout 56723147 Active 2023 Edgar Meath null, [facility] 4 11:29:55 Hyperlipidemia 88693416 Active 2023 Edgar Meat null, [facility] 4 11:30:00 Testicular hypofunction 935019537 Active 2023 Edgar Meat null, [facility] 4 11:30:10 Vitamin D deficiency 16714068 Active 2023 Edgar Meat null, [facility] 4 11:30:19 Prostate specific antigen above reference range 042112399 Active 2023 Degar Meat null, [facility] 4 11:30:27 Hypogonadism 62298706 Active 2023 Edgar Meat null, [facility] 4 11:10:25 Problem Notes None recorded. Procedures Surgical History Date Name Laterality Status Provider Name and Address Organization Details Recorded Time 4 COMPLEX VISIT completed Carmine Chapa MD [address] [place] [address], [address], [facility] 07/29/2023 14:21:41 4 Past Data Reviewed completed Carmine Chapa MD [address] [place] [address],[address], [address], [facility] 07/29/2023 14:21:57 8 Colonoscopy completed [facility] 06/25/2023 11:31:10 Imaging Results None recorded. Procedure [...] Available No t Available Drisdol 1.25mg of 48855ex Once a week 07/28 completed HN: Patient reports no longer taking Not Available Not Available Not Available Vitals Date Recorded Body mass index (BMI) Body height Body weight Provider Name and Address Organization Details Last Updated DateTime 07/29/2023 27.3 kg/m2 187.96 cm 33042.2897 784206 g Not Available Health Note 07/29/2023 13:55:22 [...] Used Smokeless Tobacco? Never Used Smokeless Tobacco [facility] Information not available 07/28/2023 Do You Use Any Illicit Or Recreational Drugs? No [facility] Information not available 07/28/2023 Has Tobacco Cessation Counseling Been Provided? No Information not available 07/29/2023 Do You Or Have You Ever Used Any Other Forms Of Tobacco Or Nicotine? No Information not available 07/29/2023 How Many Days In The Past Year Have You Consumed 5 Or More Drinks? 0 [facility] Information no t available 07/28/2023 Sex: Unknown Functional Status None recorded. Mental Status None recorded. Family History Relationship Description Onset Age of this Age Resolved Age Notes LastModified by Organization Details LastModified Time Mother Family history of breast cancer [facility] Not available 2023 00:22:33 Medical History Condition Response High Blood Pressure N Kidney Stones N Depression N Lung Disease N GERD/Acid Reflux N Sexually Transmitted Infection N Cancer N High Cholesterol N Diabetes N Bleeding Disorder N Heart Disease N Immunizations Vaccine Type Date Status Provider Name and Address Organization Details Recorded Time SARS-COV-2 (COVID-19) vaccine, UNSPECIFIED 04/07/2021 completed Edgar Meath null, [facility] 07/29/2023 14:06:20 SARS-COV-2 (COVID-19) vaccine, UNSPECIFIED 04/27/2021 completed Edgar Meath null, [facility] 07/29/2023 14:06:20 zoster recombinant 08/28/2017 completed Edgar Meath null, [facility] 07/29/2023 14:06:20 zoster recombinant 11/26/2017 completed Edgar Meath null, [facility] 07/29/2023 14:06:20 COVID-19, mRNA, LNP-S, PF, 100 mcg/0.5mL dose or 50 mcg/0.25mL dose 07/18/2020 completed Edgar Meath null, [facility] 07/29/2023 14:06:20 COVID-19, mRNA, LNP-S, PF, 100 mcg/0.5mL dose or 50 mcg/0.25mL dose 08/15/2020 completed Edgar Meath null, [facility] 07/29/2023 14:06:20 COVID-19, mRNA, LNP-S, PF, 100 mcg/0.5mL dose or 50 mcg/0.25mL dose 04/08/2021 completed Edgar guy [facility] 07/29/2023 14:06:20 COVID-19, mRNA, LNP-S, bivalent, PF, 50 mcg/0.5 mL or 25mcg/0.25 mL dose 03/26/2022 completed Edgar guy [facility] 07/29/2023 14:06:20 Tdap 05/24/2013 completed Edgar Meath brooks, [facility] 07/29/2023 14:06:20 Td (adult), 2 Lf tetanus toxoid, preservative free, adsorbed 01/13/2003 completed Edgar guy, [facility] 07/29/2023 14:06:20 Past Encounters Encounter ID Performer Location Encounter Start Date Encounter Closed Date Diagnosis/Indication Diagnosis SNOMED-CT Code Diagnosis ICD10 Code [id number] Taylor Cortés[facility] [address] [facility] e [address] [place] [phone] 07/29/2023 13:52:21 07/29/2023 14:28:01 Prostate specific antigen above reference range 225493979 R97.20 Male hypogonadism 916951 06 E29.1 Health Concerns Section Related Observation LastModified by Organization Detai ls LastModified Time None Recorded Concern Status LastModified by Organization Details LastModified Time None Recorded Advance Directives Directive None Recorded Payers Encounter Date Sequence Insurance Name Policy Number Policy Worrell Covered Member ID Worrell Member ID Guarantor Name 07/29/2023 1 [employer] (MEDICARE REPLACEMENT PPO) [id number] Jeyson Keith [id number] Jeyson Keith 07/29/2023 2 MED[place]: [employer] [facility] Jeyson Keith [id number] Jeyson Keith Notes Date Note Type Note Provider Name and Address Organization Details Recorded Time 07/29/2023 text/html This is a 67 yea r old male who is referred by Dr. Rubio for the evaluation and management of an elevated prostate specific antigen. He was noted to have an elevated prostate specific antigen of 2.37 ng/mL (05/29/2023)His prior prostate specific antigen's have been < 1 ng/mL with his prostate specific antigen last year at 0.5 ng/mL.He has no prior history of prostate specific antigen elevations.There is no family history of prostate cancer. He is typically on testosterone replacement therapy but this is being held pending evaluation of his prostate specific antigen. SARAH Patel - [facility] 07/29/2023 14:25:38
--- OUTSIDE RECORDS SUMMARY | 2024-03-13 09:33 | XMS_ITS | Clinical Summary ---
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
--- OUTSIDE RECORDS SUMMARY | 2024-03-13 09:33 | XMS_ITS | Referral Summary ---
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
== END 2024-03-09 10:32 | disposition home or self-care (01) ==
LOC: NFLDREF 03-13 09:30
PROVIDERS: PCP Family Medicine; Referring Provider Family Medicine; Visit Provider Family Medicine
DX: R79.89 Other specified abnormal findings of blood chemistry (principal)
CPT/HCPCS: 84270; 84402; 84403

== ENCOUNTER 2024-08-15 10:04 | Outpatient (CLI) | payer MEDICARE, SELFPAY | END 2024-08-15 10:05 | disposition home or self-care (01) | LOC: NFLDREF 08-17 03:12 | PROVIDERS: PCP Family Medicine; Referring Provider Family Medicine; Visit Provider Family Medicine | DX: Z12.5 Encounter for screening for malignant neoplasm of prostate (principal); E78.5 Hyperlipidemia, unspecified; E55.9 Vitamin D deficiency, unspecified | CPT/HCPCS: 80053; 80061; G0103 ==

== ENCOUNTER 2024-08-19 13:01 | Outpatient (CLI) | payer MEDICARE, SELFPAY | END 2024-08-19 13:02 | disposition home or self-care (01) | PROVIDERS: PCP Family Medicine; Visit Provider Family Medicine | DX: E55.9 Vitamin D deficiency, unspecified (principal); R53.83 Other fatigue | CPT/HCPCS: 82306; 84443 ==

== ENCOUNTER 2024-12-19 10:02 | Outpatient (CLI) | payer MEDICARE, SELFPAY | END 2024-12-19 10:03 | disposition home or self-care (01) | LOC: NFLDREF 12-21 14:17 | PROVIDERS: PCP Family Medicine; Referring Provider Family Medicine; Visit Provider Family Medicine | DX: R79.89 Other specified abnormal findings of blood chemistry (principal); R53.83 Other fatigue; D64.9 Anemia, unspecified | CPT/HCPCS: 80076; 84270; 84402; 84403 ==